=== PATIENT | male | born 1980 | race Caucasian/White ===

== ENCOUNTER 2020-03-21 04:26 | Day surgery (SDC) | payer OTHER ==
[2020-03-20 09:23] VITALS: BMI 28.5
[~2020-03-21 04:26] MED LIST: ceFAZolin 2 GRAM PREMIX BAG IVPB ONE
[2020-03-21 08:57] LABS: BASO % 1.1 % (0-2.0); EOS % 2.1 % (0-4.5); HEMATOCRIT 36.1 % (35.4-49); HEMOGLOBIN 11.6 GM/dL (11.7-16.9); LYMPH % 23.1 % (8-40); MCHC 32.2 g/dl (32.0-35.9); MEAN PLT VOLUME 8.3 fl (7.5-11.1); MONO % 6.2 % (3.8-10.2); NEUT % 67.5 % (42.8-82.8); PLATELET COUNT 262 K/MM3 (134-434); RBC 4.01 M/mm3 (4.00-5.60); RDW 13.4 % (11.9-15.9); WHITE BLOOD COUNT 12.8 K/mm3 (4.0-10.0)
[2020-03-21 08:58] LABS: INR 0.99 (0.83-1.09)
[2020-03-21 09:01] LABS: ACTIVATED PTT 29.2 SECONDS (25.2-36.5)
[2020-03-21] MEDS ORDERED: PROPOFOL 20 ML ONE ×2 (09:14)
--- NOTE | 2020-03-21 09:17 | HP ---
[facility] - Chief Complaint Chief Complaint: left shoulder pain - Past Medical History Allergies/Adverse Reactions: Allergies Allergy/AdvReac Type Severity Reaction Status Date / Time No Known Allergies Allergy Verified 03/21/20 08:54 - Current Medications Current Medications: Home Medications Medication Instructions Recorded Amlodipine Besylate [Norvasc -] 10 mg PO DAILY 03/20/20 Atorvastatin Ca [Lipitor] 20 mg PO HS 03/20/20 Insulin Glargine,Hum.rec.anlog 22 unit SQ HS 03/20/20 [Lantus] Metoprolol Succinate [Toprol Xl] 50 mg PO DAILY 03/20/20 Ramipril [Altace] 10 mg PO DAILY 03/20/20 Sitagliptin Phosphate [Januvia] 25 mg PO DAILY 03/20/20 [facility]ellite Physical Exam - Physical Examination Vital Signs: Vital Signs Period Temp Pulse Resp BP Sys/Loredo Pulse Ox Last 24 Hr 97.8 F 85 18 134/84 98-98 General Appearance: Well Nourished, Well Developed, Alert & Oriented x3 ENT: Clear Lung: Normal air movement Extremities: Other (left shoulder- + ttp, decr rom , + neer, + muñoz, + empty can, nvi) Neurological: Intact, Alert, Oriented [facility]ellite Impression/Plan - Impression/Plan Impression: left shoulder rct, impingement Operative Procedure: left shoulder arthroscopy with RCR, ZUNILDA Date to be Performed: 03/21/20
[2020-03-21 09:43] LABS: POTASSIUM 5.1 mmol/L (3.5-5.1)
[2020-03-21 09:46] LABS: ALBUMIN 3.6 g/dl (3.4-5.0); BLOOD UREA NITROGEN 44.4 mg/dL (7-18); CALCIUM 9.5 mg/dL (8.5-10.1)
[2020-03-21 09:49] LABS: CREATININE 2.7 mg/dL (0.55-1.3)
[2020-03-21 09:51] LABS: BILIRUBIN,TOTAL 0.3 mg/dL (0.2-1); TOT PROT 7.4 g/dl (6.4-8.2)
[2020-03-21 10:04] LABS: EPI CELLS 2 /uL (0-25.1); HYALINE CASTS 2 /uL (0-3.1); URINE APPEARANCE CLEAR; URINE BACTERIA 4 /uL (0-1359); URINE BILIRUBIN NEGATIVE (NEGATIVE); URINE COLOR YELLOW; URINE GLUCOSE (UA) NEGATIVE (NEGATIVE); URINE KETONE NEGATIVE (NEGATIVE); URINE LEUK ESTERASE NEGATIVE (NEGATIVE); URINE NITRITE NEGATIVE (NEGATIVE); URINE PROTEIN 3+ (NEGATIVE); URINE RBC 12 /uL (0-23.9); URINE UROBILINOGEN 0.2 mg/dL (0.2-1.0); URINE WBC 2 /uL (0-25.8)
[2020-03-21] MEDS ORDERED: DEXAMETHASONE SOD PHOSPHATE/PF 10 MG/ML SDV ONE (10:15)
[2020-03-21] MEDS ORDERED: MIDAZOLAM HCL 2 MG/2 ML SINGLE DOSE VIAL ONE ×2 (10:16)
[2020-03-21] MEDS ORDERED: ceFAZolin 2 GRAM PREMIX BAG IVPB ONE (10:50)
[2020-03-21] MEDS ORDERED: LACTATED RINGERS SOLUTION 1,000 ML IV SCH (11:00)
[2020-03-21] MEDS ORDERED: oxyCODONE HCL 5 MG TABLET PO PRN (11:00)
[2020-03-21] MEDS ORDERED: ONDANSETRON 4 MG/2 ML VIAL IVPUSH PRN (11:00)
[2020-03-21] MEDS ORDERED: ceFAZolin SODIUM 1 GM VIAL ONE (11:04)
--- NOTE | 2020-03-21 11:38 | OP ---
Operative Note - Note: Operative Date: 03/21/20 ([facility]) Pre-Operative Diagnosis: left shoulder rct, impingement Operation: left shoulder arthroscopy with RCR, SAD Implants: S&N patch Post-Operative Diagnosis: Same as Pre-op Surgeon: Ino Castaneda Aviation Support Equipment Repairer: Narciso Moseley Anesthesia: General, Local Specimens Removed: shavings Estimated Blood Loss (mls): 5
[2020-03-21 15:07] VITALS: TEMP 97.4
[2020-03-21 15:46] VITALS: BP 140/90; PULSE 87
--- NOTE | 2020-03-22 15:01 | PATH ---
Surgical Pathology Report Patient Name: BRITNEY BUNCH Med. Rec. #: [id number] /Age/Gender: 1980 (Age: 39) / M Account: [id number] Location: [facility] SURGICAL Taken: 03/21/2020 Received: 03/21/2020 Reported: 03/22/2020 Physicians: Ino Castaneda M.D. Specimen(s) Received LEFT SHOULDER SHAVINGS Clinical History Left shoulder tear Final Diagnosis SHOULDER, LEFT, ARTHROSCOPIC SHAVINGS: FIBROCOLLAGENOUS TISSUE, BONE, CARTILAGE AND SKELETAL MUSCLE. Electronically Signed Sachi Segovia M.D. Gross Description Received in formalin, labeled "left shoulder shavings," is a 3.5 x 2.5 x 0.3 cm. aggregate of ramirez-yellow soft tissue fragments. A account executive sales representative portion is submitted in one cassette. /03/21/2020 saudi03/21/2020
--- NOTE | 2020-03-22 15:34 | OP ---
DATE OF OPERATION: 03/21/2020 PREOPERATIVE DIAGNOSIS: Left rotator cuff tear. POSTOPERATIVE DIAGNOSIS: Left rotator cuff tear. PROCEDURE: Arthroscopy of left shoulder with subacromial decompression and left rotator cuff repair using Ahn & Nephew biological membrane. SURGICAL ATTENDING: Ino Castaneda MD HIGH [employer]CHO[employer] BAND TEACHER: ELIECER Peña ANESTHESIA: Regional and general. CLOSURE: A medium biological membrane with aristides for repair, 3-0 nylon for the skin. ESTIMATED BLOOD LOSS: Negligible. COMPLICATIONS: None. CONDITION: To recovery room in stable condition. DESCRIPTION OF OPERATIVE PROCEDURE: Patient was taken to the operating room on March 21, 2020. Regional and general anesthesia was administered by the anesthesiologist. IV Kefzol was administered prophylactically prior to the case. Patient was placed in the beach-chair position with all prominences well padded. First a diagnostic arthroscopy of the glenohumeral joint was performed. The posterior portal was made 2 fingerbreadths below the acromion with a 15-blade followed by blunt trocar. Anterior portal was then made using a spinal needle under direct visualization in the anterior triangle, first with a spinal needle followed by a 15-blade and a blunt trocar. Circumferential exam of the glenohumeral joint revealed the following: Intact glenoid and humeral head articular cartilage, intact biceps and biceps anchor, intact labrum circumferentially, no loose bodies in the axillary pouch, intact subscapularis to its insertion. Looking superiorly at the rotator cuff, it was intact to its insertion, but felt that it was frayed somewhat. Any loose fronds were debrided using a shaver. A marking stitch was placed from underneath to superiorly. Next, our attention was directed to the subacromial space. The posterior trocar was redirected in the subacromial space. An accessory lateral portal was then made with a 15-blade followed by blunt trocar. We encountered a great deal of fibrous tissue in the subacromial space. This was debrided using ArthroCare and a shaver exposing the rotator cuff beneath. There was a large subacromial spur. This was debrided using the acromionizer bur. The coracoacromial ligament was identified and detached off the anterior acromion. It was visualized to drop inferiorly where it was further debrided. Acromioplasty was then performed gaining sufficient height for the rotator cuff beneath. All fibrous tissue encroaching on the rotator cuff was debrided, exposing the rotator cuff. With external rotation we were able to see the insertion of the supraspinatus tendon and the marking stitch. This area was palpated and found that the rotator cuff was indeed deficient and weakened and very thin. It was thus decided to do a rotator cuff repair. This area was trephinated for a bleeding surface. A Ahn & Nephew biological implant was matted down on top of the rotator cuff overhanging the greater tuberosity. It was then fixated into place with multiple circumferential bioabsorbable aristides. Probing of the repair revealed excellent position of the membrane with excellent fixation to the rotator cuff. Range of motion of the shoulder revealed good stability of the repair and good clearance in the subacromial space. The fluid was drained from the shoulder. The trocars were pulled. The portals were closed using 3-0 nylon sutures. A sterile pressure dressing was placed over the shoulder. The patient was awakened from anesthesia and transferred to recovery room in stable condition in a shoulder immobilizer. No complications. Estimated blood loss negligible. Andreina [id number]
== END 2020-03-21 14:50 | disposition home or self-care (01) ==
LOC: JASU-SURG 04:26
PROVIDERS: ATTEND Orthopaedic Surgery
PROC: 0LU24JZ Supplement Left Shoulder Tendon with Synthetic Substitute, Percutaneous Endoscopic Approach (ICD-10-PCS; 2020-03-21)
PROC: 0RNK4ZZ Release Left Shoulder Joint, Percutaneous Endoscopic Approach (ICD-10-PCS; principal; 2020-03-21 11:00)
PROC: 0LQ24ZZ Repair Left Shoulder Tendon, Percutaneous Endoscopic Approach (ICD-10-PCS; 2020-03-21 11:00)
DX: M75.102 Unspecified rotator cuff tear or rupture of left shoulder, not specified as traumatic (principal); E11.9 Type 2 diabetes mellitus without complications; I10 Essential (primary) hypertension
CPT/HCPCS: 36415; 80053; 81003; 85025; 85610; 85730; 88304-TC; 94760